=== PATIENT | female | born 1975 | race Caucasian/White ===

== ENCOUNTER 2023-07-20 13:22 | Day surgery (SDC) | payer OTHER, SELFPAY ==
--- NOTE | 2023-07-20 13:34 | US_ITS ---
[address] [address] Patient Name: OMAR CARTER MRN: [id number] date: 1975 Sex: F Assigned Patient Location: [place] Current Patient Location: [place] Accession/Order Number: [id number] Exam Date: 07/20/2023 13:35 Report Date: 07/20/2023 14:47 At the request of: RIZWANA MALAGON Procedure: US biopsy thyroid EXAMINATION: US biopsy thyroid HISTORY: History of thyroid cyst Z86.39 COMPARISON: Ultrasound thyroid 07/03/2023 TECHNIQUE: After obtaining informed consent, ultrasound-guided fine needle aspiration was performed in the usual sterile manner. FINDINGS: IMAGING: Ultrasound. BIOPSY NEEDLE: 25-gauge; 3 separate passes LOCATION: Mid right lobe nodule 2.1 x 1.2 x 1.2 cm SPECIMEN TYPE: Cellular tissue. LOCAL ANESTHETIC: Buffered Xylocaine. COMPLICATIONS: None. LABORATORY: Prepared slide smears and washings for cell block evaluation. OTHER: Negative. PATHOLOGY: Pending. An addendum will be added when results are available. US/US biopsy thyroid IMPRESSION: 1. Uneventful ultrasound guided fine needle aspiration (FNA). 2. Pathology results are pending. Electronically authenticated by: GUANAKO COLLINS Date: 07/20/2023 14:47
== END 2023-07-20 14:29 ==
PROVIDERS: PCP Family Medicine; Visit Provider Otolaryngology
DX: E04.1 Nontoxic single thyroid nodule (principal)
CPT/HCPCS: 10005; 88173

== ENCOUNTER 2023-11-02 09:17 | Outpatient (OUT) | payer OTHER, SELFPAY ==
--- NOTE | 2023-11-02 09:31 | FL_ITS ---
The [address] [address] Patient Name: OMAR CARTER MRN: [id number] date: 1975 Sex: F Assigned Patient Location: [place] Current Patient Location: [place] Accession/Order Number: [id number] Exam Date: 11/02/2023 09:45 Report Date: 11/02/2023 11:22 At the request of: RIZWANA MALAGON Procedure: FL cineradiography PROCEDURE: FL barium swallow, FL cineradiography COMPARISON: None. HISTORY: Pharyngoesophageal Dysphagia R13.14 ; difficulty swallowing pills and thicker food, cough, raspy voice TECHNIQUE: An air contrast upper gastrointestinal series was performed in the usual manner. Standard level fluoroscopic mode of operation utilized. FINDINGS: ESOPHAGUS:Diminished primary and secondary peristaltic waves of the esophagus when swallowing in the prone position. No visible obstruction, mucosal irregularity, ulceration, stricture, or abnormal dilatation. No reflux or hernia seen during time of study. OTHER: Negative. FL/FL cineradiography IMPRESSION: 1. Decreased esophageal peristalsis of uncertain etiology likely accounting for the patient's symptoms. Electronically authenticated by: GUANAKO COLLINS Date: 11/02/2023 11:22
--- NOTE | 2023-11-02 09:31 | FL_ITS ---
The [address] [address] Patient Name: OMAR CARTER MRN: [id number] date: 1975 Sex: F [place]igned Patient [place]: [place] Location: [place] Accession/Order Number: [id number] Exam Date: 11/02/2023 09:45 Report Date: 11/02/2023 11:22 At the request of: RIZWANA MALAGON Procedure: FL barium swallow PROCEDURE: FL barium swallow, FL cineradiography COMPARISON: None. HISTORY: Pharyngoesophageal Dysphagia R13.14 ; difficulty swallowing pills and thicker food, cough, raspy voice TECHNIQUE: An air contrast upper gastrointestinal series was performed in the usual manner. Standard level fluoroscopic mode of operation utilized. FINDINGS: ESOPHAGUS:Diminished primary and secondary peristaltic waves of the esophagus when swallowing in the prone position. No visible obstruction, mucosal irregularity, ulceration, stricture, or abnormal dilatation. No reflux or hernia seen during time of study. OTHER: Negative. FL/FL barium swallow IMPRESSION: 1. Decreased esophageal peristalsis of uncertain etiology likely accounting for the patient's symptoms. Electronically authenticated by: GUANAKO COLLINS Date: 11/02/2023 11:22
== END 2023-11-02 09:18 | disposition home or self-care (01) ==
LOC: FL 09:18
PROVIDERS: PCP Family Medicine; Visit Provider Otolaryngology
DX: R13.14 Dysphagia, pharyngoesophageal phase (principal)
CPT/HCPCS: 74220; 76120

== ENCOUNTER 2024-02-28 14:53 | Outpatient (OUT) | payer OTHER, SELFPAY ==
--- NOTE | 2024-02-28 14:56 | US_ITS ---
Patient Name: OMAR CARTER MR#: [id number] : 1975 Exam Date: 02/28/2024 Ordering Doctor: DR NAOMI FAJARDO RADIOLOGY REPORT PROCEDURE: US BREAST RT COMPLETE COMPARISON: None. INDICATIONS: abnormal mammogram R92.8 TECHNIQUE: Breast ultrasound was performed, with evaluation focusing only on specific areas of concern. FINDINGS: DIAGNOSTIC CATEGORY 2--BENIGN FINDING: RIGHT BREAST: 2.1 x 1.7 x 1.3 cm anechoic benign-appearing cyst at the 1 o'clock position 0.8 cm from the nipple. A couple additional small less than 1 cm size benign-appearing cysts scattered within the breast parenchyma. At the 5 o'clock position is a 7 x 6 x 4 mm hypoechoic structure which appears to be a lymph node with normal fatty hilum and small amount of internal blood flow; not overtly suspicious. No comparison studies are available, but have reportedly been done at another institution. No overtly suspicious findings on today's ultrasound study. Follow-up imaging can be performed as clinically indicated. RECOMMENDATIONS: ROUTINE MAMMOGRAM AND CLINICAL EVALUATION IN 12 MONTHS. PLEASE NOTE: A NORMAL ULTRASOUND EXAMINATION DOES NOT EXCLUDE THE POSSIBILITY OF BREAST CANCER. A CLINICALLY SUSPICIOUS PALPABLE LUMP SHOULD BE BIOPSIED. Dictated by: Deni Barrow M.D. on 02/28/2024 at 15:37 Approved by: Deni Barrow M.D. on 02/28/2024 at 16:05
== END 2024-02-28 14:54 | disposition home or self-care (01) ==
LOC: US 14:53
PROVIDERS: PCP Family Medicine; Visit Provider Physician Assistant
DX: R92.8 Other abnormal and inconclusive findings on diagnostic imaging of breast (principal)
CPT/HCPCS: 76641